=== PATIENT | female | born 1990 | race American Indian/Alaskan Native ===

== ENCOUNTER 2020-04-21 21:49 | Emergency (ER) | payer MEDICAID ==
[2020-04-21 23:20] LABS: Basophils # (Auto) 0.1 K/mm3 (0.0-0.1); Basophils % (Auto) 0.9 % (0.0-1.8); Eosinophils # (Auto) 0.2 K/mm3 (0.0-0.4); Eosinophils % (Auto) 1.3 % (0.0-4.3); Hematocrit 31.5 % (30.3-42.9); Hemoglobin 10.1 gm/dl (10.1-14.3); Lymphocytes # (Auto) 1.6 K/mm3 (1.2-5.4); Mean Corpuscular HGB Conc 32 % (30-34); Mean Corpuscular Volume 72 fl (79-97); Monocytes # (Auto) 0.8 K/mm3 (0.0-0.8); Monocytes % (Auto) 6.3 % (0.0-7.3); Platelet Count 335 K/mm3 (140-440); Red Blood Count 4.36 M/mm3 (3.65-5.03); Red Cell Distribution Width 17.1 % (13.2-15.2)
[2020-04-21 23:37] LABS: Calcium 9.6 mg/dL (8.4-10.2)
[2020-04-22 00:02] LABS: Blood Urea Nitrogen 8 mg/dL (7-17); Hemolysis Index 31
[2020-04-22 00:07] LABS: BUN/Creatinine Ratio 13
[2020-04-22] MEDS ORDERED: ONDANSETRON 4 MG ODT TAB PO ONE (00:08)
[2020-04-22] MEDS ORDERED: KETOROLAC 30 MG/1 ML INJ IM ONE (00:08)
[2020-04-22] MEDS ORDERED: diphenhydrAMINE 25 MG/10 ML ORAL LIQUID PO ONE (00:08)
--- NOTE | 2020-04-22 00:11 | Emergency Department Report ---
ED General Adult HPI - General Chief complaint: Nausea/Vomiting/Diarrhea Stated complaint: N/V Time Seen by Provider: 04/21/20 23:55 Source: patient Mode of arrival: Ambulatory Limitations: No Limitations - History of Present Illness Initial comments: This is a 29-year-old obese female in no acute distress. Patient states after having dinner around 4:30 PM she developed headache with nausea and vomiting. She vomited x2 the headache is located in frontal region. The headache is not associated with any weakness changes in her vision or numbness or tingling. She is able to walk with a steady gait. Patient reports history of migraines x4 years. This episode is similar to her previous headaches. She has not taken any any medications at home for this current headache. She denies fever chills no diarrhea. Patient denies any falls or trauma any changes in her vision. She rates her pain as 8/10. Patient reports history of hypertension not currently taking any medication. Her current blood pressure is 151/95 -: This afternoon Location: head Radiation: non-radiation Severity scale (0 -10): 8 Quality: constant Consistency: constant Improves with: none Worsens with: none Associated Symptoms: headaches, nausea/vomiting. denies: confusion, chest pain, cough, diaphoresis, fever/chills, loss of appetite, malaise, rash, seizure, shortness of breath, syncope, weakness Treatments Prior to Arrival: none - Related Data Previous Rx's Medication Instructions Recorded Last Taken Type Cephalexin [Keflex] 500 mg PO QID #40 capsule 09/07/13 Unknown Rx Naproxen Sodium (Nf) [Anaprox DS 550 mg PO BID PRN #20 tablet 09/07/13 Unknown Rx TAB] Sulfamethoxazole/Trimethoprim 1 each PO BID #20 tablet 09/07/13 Unknown Rx [Bactrim DS TAB] Allergies Allergy/AdvReac Type Severity Reaction Status Date / Time No Known Allergies Allergy Verified 09/07/13 15:54 ED Review of Systems ROS: Stated complaint: N/V Other details as noted in HPI Comment: All other systems reviewed and negative Constitutional: denies: chills, fever Eyes: denies: eye pain, eye discharge, vision change ENT: denies: ear pain, dental pain, hearing loss Respiratory: denies: cough, shortness of breath, SOB with exertion, wheezing Cardiovascular: denies: chest pain, palpitations, dyspnea on exertion, edema, syncope, paroxysmal nocturnal dyspnea Endocrine: denies: intolerance to cold, intolerance to heat Gastrointestinal: denies: abdominal pain, constipation, hematochezia Skin: denies: rash Neurological: headache. denies: weakness, numbness, paresthesias, confusion, abnormal gait, vertigo, other Psychiatric: denies: depression, auditory hallucinations, visual hallucinations, homicidal thoughts ED Past Medical Hx - Past Medical History Previous Medical History?: Yes Hx Hypertension: Yes Hx Headaches / Migraines: Yes Additional medical history: anemia, - Surgical History Additional Surgical History: X 2. X 1 - Social History Smoking Status: Never Smoker Substance Use Type: None - Medications Home Medications: Home Medications Medication Instructions Recorded Confirmed Last Taken Type Cephalexin [Keflex] 500 mg PO QID #40 capsule 09/07/13 Unknown Rx Naproxen Sodium (Nf) [Anaprox DS 550 mg PO BID PRN #20 tablet 09/07/13 Unknown Rx TAB] Sulfamethoxazole/Trimethoprim 1 each PO BID #20 tablet 09/07/13 Unknown Rx [Bactrim DS TAB] ED Physical Exam - General Limitations: No Limitations General appearance: alert, in no apparent distress - Head Head exam: Present: atraumatic, normal inspection - Eye Eye exam: Present: normal appearance, PERRL, EOMI. Absent: scleral icterus, conjunctival injection, periorbital swelling, periorbital tenderness Pupils: Present: normal accommodation. Absent: unequal, mydriatic - ENT ENT exam: Present: normal exam, normal orophraynx, mucous membranes moist, TM's normal bilaterally - Neck Neck exam: Present: normal inspection, full ROM. Absent: tenderness - Respiratory Respiratory exam: Present: normal lung sounds bilaterally. Absent: respiratory distress, wheezes, rales, rhonchi, stridor - Cardiovascular Cardiovascular Exam: Present: regular rate, normal heart sounds - Extremities Exam Extremities exam: Present: normal inspection, full ROM, normal capillary refill - Back Exam Back exam: Present: normal inspection - Neurological Exam Neurological exam: Present: alert, oriented X3, CN II-XII intact, normal gait, motor sensory deficit, other (Negative Romberg) - Psychiatric Psychiatric exam: Present: normal affect, normal mood - Skin Skin exam: Present: warm, dry, intact, normal color ED Course Vital Signs 04/21/20 22:45 Temperature 98.2 F Pulse Rate 74 Respiratory 17 Rate Blood Pressure 151/95 O2 Sat by Pulse 99 Oximetry - Reevaluation(s) Reevaluation #1: 04/22/20 00:52 Patient resting in her room in no acute distress states that her headache has gone down to a 6/10 ED Medical Decision Making - Lab Data Result diagrams: 04/21/20 23:02 04/21/20 23:02 - Medical Decision Making This is a 29-year-old female with a history of migraines around 4:30 PM today. s he developed a headache with nausea and vomiting. She vomited x2. She has no other complaints neurological exam is unremarkable. is negative and lab results are unremarkable. She is given Toradol 30 mg IM Zofran 4 mg and Benadryl 50 mg - Differential Diagnosis Migraine headache hypertension viral illness Critical care attestation.: If time is entered above; I have spent that time in minutes in the direct care of this critically ill patient, excluding procedure time. ED Disposition Clinical Impression: Headache Qualifiers: Headache type: unspecified Headache chronicity pattern: acute headache Intractability: not intractable Qualified Code(s): R51.9 - Headache, unspecified Disposition: DC-01 TO HOME OR SELFCARE Is pt being admited?: No Does the pt Need Aspirin: No Condition: Stable Instructions: Hypertension, Adult, [id number], Migraine Headache Additional Instructions: Get plenty of rest drink at least 6 to 8 glasses of water daily. Take [id number] Tylenol or Advil as directed by package insert for headache today your blood pressure was 151/95. Please follow-up with your doctor for further evaluation and treatment of your blood pressure Referrals: DENICE BAI MD [Primary Care Provider] - 3-5 Days Forms: Work/School Release Form(ED) Time of Disposition: 00:39
[2020-04-22 00:49] LABS: Bilirubin,Urine NEG (Negative); Blood,Urine NEG (Negative); Color,Urine Straw (Yellow); Mucus,Urine FEW /HPF; Protein,Urine <15 mg/dL mg/dL (Negative); Urobilinogen,Urine < 2.0 mg/dL (<2.0)
[2020-04-22 01:21] VITALS: BP 132/79
== END 2020-04-22 01:20 | disposition home or self-care (01) ==
LOC: ED 21:49
DX: R51.9 Headache, unspecified (principal); R11.2 Nausea with vomiting, unspecified; I10 Essential (primary) hypertension; Z98.890 Other specified postprocedural states
CPT/HCPCS: 36415; 80048; 81001; 84703; 85025; 96372; 99283; J1885; Q0163; Q0162